=== PATIENT | male | born 1955 | race Caucasian/White ===

== ENCOUNTER 2024-06-17 22:20 | Emergency (ER) | payer OTHER, MEDICARE, SELFPAY ==
[2024-06-17 22:27] VITALS: BP 110/78
[2024-06-17 22:28] VITALS: BP 110/78; BMI 34.0
--- NOTE | 2024-06-17 22:38 | ED.GENMED ---
History of Present Illness
General
Chief Complaint: Fainting/Passed Out
Source: patient
Exam Limitations: none
Time Seen by Provider: 06/17/24 22:37
History of Present Illness
History of Present Illness:
See MDM
Past History
Past History
ED Past Medical History: None
ED Past Surgical History: None
Phy Exam
Physical Exam
Physical Exam:
See MDM
Course
Orders/Labs/Results
Orders:
Orders
06/17/24 22:25
Electrocardiogram (*1) Urgent
Reason for Study: Syncope
EKG- Treatment ONCE
06/17/24 22:44
Complete Blood Count/With Diff Urgent
06/17/24 22:57
Comprehensive Metabolic Panel Urgent
Abnormal Lab Results
06/17/24 1224
22:44 00:18
RBC 4.17 L 10^6/uL
(4.70-6.10)
MCV 94.7 H fL
(80.0-94.0)
MCH 32.4 H pg
(27.0-31.0)
Absolute Monos (auto) 1.0 H 10^3/uL
(0.1-0.6)
Lymphocytes % 20.2 L %
(20.5-51.1)
Monocytes % 10.6 H %
(1.7-9.3)
BUN 25 H mg/dl
(9-20)
Glucose 109 H mg/dl
(70-99)
06/17/24 22:44
06/18/24 00:18
Vital Signs
Initial and Last Documented VS:
Initial Vital Signs
BP
110/78
06/17/24 22:27
Last Documented Vital Signs
Temp Pulse Resp BP Pulse Ox
97.5 F 56 17 99/68 93
06/17/24 22:28 06/18/24 01:11 06/17/24 23:30 06/18/24 01:15 06/18/24 00:10
MDM/Problems Addressed
Differential Diagnosis Includes:
HPI and MDM Narrative:
68-year-old male presenting for a near syncopal event. Patient was out eating when he developed gas pains. This has happened before. Having a large bowel movement and resolves the symptoms. On arrival to the emergency department, patient had a
very large bowel movement
at bedside states that has been ongoing for years and no one can figure it out. Patient does acknowledge that he dismisses the symptoms to his PCP. Patient is now ambulating back and forth to the bathroom without difficulty. EKG is
nonischemic. Discussed having this further evaluated by his PCP and discussed outpatient cardiology and GI evaluation
Physical exam
General: Well appearing and non-toxic
HEENT: protecting airway
Neck: appears supple
CV: No evidence of cyanosis. Regular rate and rhythm
Resp: No accessory muscle use
Abd: Non-distended
Extremities: No deformities
Neuro: alert
Psych: Normal affect
Skin: Intact
Problems Addressed including Acute and Chronic Conditions affecting care:
1. Gas pains
Acuity: acute
Prognosis: stable
Details: Symptoms self resolved in the emergency department when he had a large bowel movement
2. Near syncope
Acuity: acute
Prognosis: stable
Details: Likely vasovagal.
Update: Prior to being discharged, he had 1 last bowel movement which showed bright red blood in the stool. Referred admission for GI evaluation. Patient states he is going to go home and will come back if symptoms persist. Otherwise, he is going
to have this followed up as an outpatient
Differential Diagnosis (but not limited to): Near syncope, vasovagal, orthostasis
Testing considered: Troponin
Drug therapy (if applicable): OTC meds, please see d/c instruction regarding Rx drugs
Amount and/or Complexity of Data Reviewed
Clinical info obtained from: Patient
External data reviewed: N/A
Labs I independently reviewed (but not limited to): White blood cell count
Radiology: N/A
Pulse Ox: not hypoxic
EKG independently reviewed: Sinus bradycardia, normal axis, no STEMI
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
Critical Care: N/A
Risk of Complication:
Social Determinants of health: Good social support
Discussed with other providers: N/A
Escalation of Care includes Admit/Obs: After being observed in the Emergency Department, pt stable for discharge.
Occasional wrong word or 'sound a like' substitutions may have occurred due to the inherent limitations of voice recognition software. Read the chart carefully and recognize, using context, where substitutions have occurred.
*Critical Care Note
Total Time (30-74mins, 75-104mins- exclusive of procedures): Not Applicable
ED Attending Note
-
Portions of this chart may have been created with voice recognition software.� Occasional wrong word or��sound alike� substitutions may have occurred due to the inherent limitations of voice recognition software.
Discharge Plan
Departure
Patient Disposition: Home (Routine Discharge)
Date of Disposition: 06/18/24
Time of Disposition: 01:01
Patient with high blood pressure during this ER visit?: No
Discharge Problem:
Near syncope
Instructions: Syncope (Fainting) (DC)
Activity Restrictions/Additional Instructions:
Please return for any worsening symptoms.
You may return at any time if you have further concerns.
Please follow up with your doctor at the first available appointment, preferably this week.
As we discussed, you would benefit from a cardiology and gastroenterology evaluation.
Thank you for choosing [facility].
Interventions
Interventions:
*Risk Screen - Suicide Last Done: 06/17/24 22:28
*General Assessment Last Done: 06/17/24 22:28
*Neglect/Abuse Screening Last Done: 06/17/24 22:28
ED- Fall Risk Assessment Last Done: 06/18/24 01:15
*ED COVID-19 Vaccine History Last Done: 06/17/24 22:47
*Nursing Disposition Last Done: 06/18/24 01:15
ED- Cardiac Assessment Last Done: 06/17/24 22:49
ED- Neurological Assessment Last Done: 06/17/24 22:49
Discharge Date and Time
Discharge Date/Time: 06/18/24 01:18
Print Language: DIVEHI
[2024-06-17 22:52] LABS: % Basophils 0.4 % (0-2); % Eosinophils 1.8 % (0-6); % Immature Granulocytes 0.4 % (0-0.5); % Lymphocytes 20.2 % (20.5-51.1); % Monocytes 10.6 % (1.7-9.3); % Neutrophils 66.6 % (42.2-75.2); Absolute Eosinophils 0.2 10^3/uL (0-0.7); Absolute Neutrophils 6.5 10^3/uL (1.4-6.5); Hematocrit 39.5 % (39.0-52.0); Hemoglobin 13.5 g/dL (13.0-18.0); Mean Corp Hgb Conc. 34.2 g/dL (33.0-37.0); Mean Corpuscular Hgb 32.4 pg (27.0-31.0); Mean Corpuscular Volume 94.7 fL (80.0-94.0); Nucleated Red Blood Cells % 0 % (-); Platelet Count 160 10^3/uL (130-400); Red Blood Cell Count 4.17 10^6/uL (4.70-6.10); Red Cell Dist. Width 13.2 % (11.5-14.5); White Blood Cell Count 9.7 10^3/uL (4.8-10.8)
[2024-06-17 23:00] VITALS: BP 124/79
[2024-06-18 00:18] VITALS: BP 100/57
[2024-06-18 00:39] LABS: ALT (SGPT) 26 U/L (0-50); AST (SGOT) 25 U/L (17-59); Albumin 4.2 g/dl (3.5-5.0); Alkaline Phosphatase 48 U/L (38-126); Blood Urea Nitrogen 25 mg/dl (9-20); Calcium 8.9 mg/dl (8.4-10.2); Carbon Dioxide 26 mmol/L (22-30); Chloride 104 mmol/L (98-107); Estimated Creatinine Clearance 74 ml/min; Glucose 109 mg/dl (70-99); Potassium 4.5 mmol/L (3.5-5.1); Sodium 141 mmol/L (135-145); Total Bilirubin 0.3 mg/dl (0.2-1.3); Total Protein 7.1 g/dl (6.3-8.2); eGFR > 60.00
[2024-06-18 01:00] VITALS: BP 89/56
[2024-06-18 01:11] VITALS: BP 95/51
[2024-06-18 01:15] VITALS: BP 99/68
[2024-06-18 01:27] VITALS: BP 114/76
== END 2024-06-18 01:18 | disposition home or self-care (01) ==
LOC: EMR 22:20
PROVIDERS: EMERGENCY PHYSICIAN Student in an Organized Health Care Education/Training Program; FAMILY PHYSICIAN Family Medicine
DX: R55 Syncope and collapse (principal)
CPT/HCPCS: 99283; 80053; 85025; 93005